=== PATIENT | female | born 1995 | race Caucasian/White ===

== ENCOUNTER → 2018-03-02 16:52 | Outpatient (CLI) | payer BC, SELFPAY ==
[2018-03-07 15:26] LABS: HPV Reflexed? NOT INDICATED
== END ==
PROVIDERS: Visit Provider Obstetrics & Gynecology
DX: Z12.4 Encounter for screening for malignant neoplasm of cervix (principal)
CPT/HCPCS: 88175; G0145

== ENCOUNTER → 2019-07-31 15:47 | Outpatient (CLI) | payer BC, SELFPAY ==
[2019-07-31 17:53] LABS: hCG Titer Quant., Serum 491 mIU/mL (1-3)
== END ==
PROVIDERS: Family Provider Family Medicine; PCP Family Medicine; Referring Provider Obstetrics & Gynecology; Visit Provider Obstetrics & Gynecology
DX: N92.6 Irregular menstruation, unspecified (principal)
CPT/HCPCS: 36415; 84702

== ENCOUNTER → 2019-08-02 07:02 | Outpatient (CLI) | payer BC, SELFPAY ==
[2019-08-02 07:57] LABS: hCG Titer Quant., Serum 988 mIU/mL (1-3)
== END ==
PROVIDERS: Family Provider Family Medicine; PCP Family Medicine; Referring Provider Obstetrics & Gynecology; Visit Provider Obstetrics & Gynecology
DX: O20.0 Threatened abortion (principal); Z3A.00 Weeks of gestation of pregnancy not specified
CPT/HCPCS: 36415; 84702

== ENCOUNTER → 2019-08-17 08:49 | Outpatient (CLI) | payer BC, SELFPAY ==
--- NOTE | 2019-08-17 08:49 | US_ITS ---
STUDY: FIRST TRIMESTER OBSTETRICAL ULTRASOUND REASON FOR EXAM: Female, 24 years old DATING LMP: April 06, 2020. TECHNIQUE: Transvaginal TECHNICAL QUALITY: Adequate. PRIOR ULTRASOUND: None. FINDINGS: There is visualization of a single gestational sac in a normal intrauterine position. The mean sac diameter (MSD) measures 2.3 cm, indicating an estimated gestational age (EGA) of 7 weeks, 2 days. The gestational sac shape is within normal limits. There is a visualized yolk sac. The yolk sac measures 3 mm. The placenta is non-visualized. There is visualization of a live embryo. The crown-rump length (CRL) measures 9 mm, indicating an estimated gestational age (EGA) of 6 weeks, 6 days. There is demonstrated cardiac activity with a heart rate of 135 bpm. The estimated gestation age (EGA) by LMP is 6 weeks, 5 days. The estimated date of delivery (BECCA) by LMP is April 06, 2020. The estimated gestation age (EGA) by US is 7 weeks, 0 days. The estimated date of delivery (BECCA) by US is April 04, 2020. The uterus measures 8.8 cm x 6.1 cm x 6.5 cm. The uterus is retroverted. There is no demonstrated uterine fibroid. The cervix is closed. The right ovary measures 3.2 cm x 1.8 x 2 x 1.7 cm. There is no right ovarian cyst. There is no visualized right adnexal mass or complex lesion. The left ovary measures 3.8 cm x 3.8 cm x 2.1 cm.. Within it, there is a 1.9 cm x 1.6 cm and 1.3 cm dominant follicle. There is no visualized left adnexal mass or complex lesion. Small amount of free fluid is seen surrounding the left adnexal region. US/Transvaginal w/Preg US IMPRESSION: Single live intrauterine gestation with a mean gestational age of 7 weeks. Dominant follicle in the left ovary. Small amount of free fluid surrounding the left adnexa. Electronically Signed: Rodolfo Murrell, at 14:36 EST , Service support ,
== END ==
PROVIDERS: Family Provider Family Medicine; PCP Family Medicine; Referring Provider Obstetrics & Gynecology; Visit Provider Obstetrics & Gynecology
DX: Z34.90 Encounter for supervision of normal pregnancy, unspecified, unspecified trimester (principal)
CPT/HCPCS: 76817

== ENCOUNTER → 2019-08-31 16:46 | Outpatient (CLI) | payer BC, SELFPAY ==
[2019-08-31 09:06] VITALS: BMI 29.0
[2019-08-31 18:40] LABS: Amphetamine Urine VISTA NEGATIVE (<1000 ng/mL); Barbiturate Urine VISTA NEGATIVE (< 200 ng/mL); Benzodiazepine Urine VISTA NEGATIVE (< 200 ng/mL); Cocaine Urine VISTA NEGATIVE (< 300 ng/mL); Ecstacy Urine VISTA NEGATIVE (< 500 ng/mL); Methadone Urine VISTA NEGATIVE (< 300 ng/mL); PCP Urine VISTA NEGATIVE (< 25 ng/mL); THC Urine VISTA NEGATIVE (< 50 ng/mL); Vista UDS pH Range 6
[2019-08-31 21:51] LABS: Chlamydia Trachomatis by PCR Negative (Negative); Neisserai gonorrhoeae by PCR Negative (Negative); Probe Check PASS; Sample Adequacy Control PASS; Specimen Processing Control PASS
== END ==
PROVIDERS: PCP Family Medicine; Referring Provider Obstetrics & Gynecology; Visit Provider Obstetrics & Gynecology
DX: Z34.90 Encounter for supervision of normal pregnancy, unspecified, unspecified trimester (principal)
CPT/HCPCS: 80307; 87086; 87491; 87591

== ENCOUNTER → 2019-09-13 08:17 | Outpatient (CLI) | payer BC, SELFPAY ==
[2019-08-31 09:06] VITALS: BMI 29.0
[2019-09-13 09:17] LABS: Absolute Neutrophil Count 5.4 X10^3/uL (2.0-7.7); Basophil# 0.03 X10^3/uL; Basophil% 0.4 % (0-1); Eosinophil# 0.06 X10^3/uL; Eosinophils% 0.8 % (0-5); Hemoglobin 13.5 g/dL (12.0-15.0); Mean Corp Hgb Conc 34.6 g/dL (32-36); Mean Corpuscular Hgb 30.7 pg (27.0-32.0); Mean Corpuscular Volume 88.6 fL (81-99); Mean Platelet Vol. 9.6 fl (6.2-12.0); Monocyte# 0.39 X10^3/uL; Monocyte% 5.4 % (0-10); NRBC Flagged by Analyzer 0 % (0-5); Neutrophil # 5.44 X10^3/uL (2.7-7.7); Neutrophil % 75.1 % (47-70); Platelet Count 281 K/mm3 (150-450); RBC Distribution Width CV 11.8 % (11.6-14.6); RBC Distribution Width SD 38.2 fl (35.1-43.9); White Blood Count 7.2 K/mm3 (4.4-11.0)
[2019-09-13 09:26] LABS: NATERA MAILED SPECIMEN
[2019-09-13 11:27] LABS: HIV - WCH Non-Reactive (Nonreactive); Hepatitis B Surface Antigen Non-Reactive (Nonreactive); Hepatitis C Antibody Non-Reactive (Nonreactive); Rubella IgG > 500.0 IU/mL
[2019-09-14 03:26] LABS: Rapid Plasmin Reagin (RPR) NONREACTIVE (NONREACTIVE)
== END ==
PROVIDERS: PCP Family Medicine; Referring Provider Obstetrics & Gynecology; Visit Provider Obstetrics & Gynecology
DX: Z34.81 Encounter for supervision of other normal pregnancy, first trimester (principal); Z31.430 Encounter of female for testing for genetic disease carrier status for procreative management
CPT/HCPCS: 36415; 85025; 86592; 86703; 86762; 86803; 86850; 86900; 86901; 87340

== ENCOUNTER → 2020-01-04 08:08 | Outpatient (CLI) | payer BC, SELFPAY ==
[2019-12-07 08:35] VITALS: BMI 29.0
[2020-01-04 08:27] LABS: Absolute Lymphocyte Count 1.29 X10^3/uL (0.83-4.51); Absolute Neutrophil Count 6.8 X10^3/uL (2.0-7.7); Basophil# 0.02 X10^3/uL; Basophil% 0.2 % (0-1); Eosinophil# 0.06 X10^3/uL; Eosinophils% 0.7 % (0-5); Hematocrit 34.7 % (37-47); Hemoglobin 12.1 g/dL (12.0-15.0); Lymphocyte # 1.29 X10^3/ul (4.0); Lymphocyte % 14.7 % (19-41); Mean Corp Hgb Conc 34.9 g/dL (32-36); Mean Corpuscular Hgb 31.8 pg (27.0-32.0); Mean Corpuscular Volume 91.1 fL (81-99); Mean Platelet Vol. 9.2 fl (6.2-12.0); Monocyte# 0.59 X10^3/uL; Monocyte% 6.7 % (0-10); NRBC Flagged by Analyzer 0 % (0-5); Neutrophil # 6.79 X10^3/uL (2.7-7.7); Neutrophil % 77.1 % (47-70); Platelet Count 246 K/mm3 (150-450); RBC Distribution Width CV 13.2 % (11.6-14.6); RBC Distribution Width SD 42.8 fl (35.1-43.9); Red Blood Count 3.81 M/mm3 (4.2-5.4); White Blood Count 8.8 K/mm3 (4.4-11.0)
[2020-01-04 09:02] LABS: Glucose Challenge Gest 1H 50g 146 mg/dL (70-140)
== END ==
PROVIDERS: PCP Family Medicine; Referring Provider Obstetrics & Gynecology; Visit Provider Obstetrics & Gynecology
DX: Z34.90 Encounter for supervision of normal pregnancy, unspecified, unspecified trimester (principal)
CPT/HCPCS: 36415; 82950; 85025

== ENCOUNTER → 2020-01-17 | Outpatient (CLI) | payer BC, SELFPAY ==
[2020-01-04 08:41] VITALS: BMI 29.0
[2020-01-17 07:22] LABS: Glucose GTT-Gestation. Fasting 84 mg/dL (<105)
[2020-01-17 08:30] LABS: Glucose GTT-Gestational 1 Hr 164 mg/dL (<190)
[2020-01-17 09:46] LABS: Glucose GTT-Gestational 2 Hr 130 mg/dL (<165)
[2020-01-17 11:19] LABS: Glucose GTT-Gestational 3 Hr 129 L (<145)
== END | disposition home or self-care (01) ==
LOC: LAB 06:55
PROVIDERS: PCP Family Medicine; Referring Provider Obstetrics & Gynecology; Visit Provider Obstetrics & Gynecology
DX: O99.810 Abnormal glucose complicating pregnancy (principal); Z3A.00 Weeks of gestation of pregnancy not specified
CPT/HCPCS: 36415; 82951; 82952

== ENCOUNTER → 2020-03-15 15:03 | Outpatient (CLI) | payer BC, SELFPAY ==
[2020-03-15 08:38] VITALS: BMI 29.0
== END ==
PROVIDERS: PCP Family Medicine; Referring Provider Obstetrics & Gynecology; Visit Provider Obstetrics & Gynecology
DX: Z34.90 Encounter for supervision of normal pregnancy, unspecified, unspecified trimester (principal)
CPT/HCPCS: 87081

== ENCOUNTER 2020-04-07 03:17 | Outpatient (CLI) | payer BC, SELFPAY ==
[2020-04-05 09:02] VITALS: BMI 29.0
[2020-04-07 03:22] VITALS: BMI 32.8
[2020-04-07 03:32] VITALS: BP 130/81; PULSE 102
[2020-04-07 03:33] VITALS: TEMP 37.9; O2SAT 97
[2020-04-07 03:38] VITALS: TEMP 36.9
[2020-04-07 04:43] VITALS: BP 127/71; TEMP 37.3
[2020-04-07 04:44] VITALS: PULSE 87; O2SAT 100
--- NOTE | 2020-04-07 09:09 | OB.TRI.PN ---
Progress Notes Date of Service: 04/07/20 Progress Note: Patient presents for triage evaluation secondary to false labor FHT: 130 Moderate variability reactive no decelerations category I tracing [place]: q 5-10Contractions Assessment and plan: false labor Reactive NST, reassuring maternal and status patient discharged to home to follow-up as scheduled. See problem list details for additional plan information. Multi Select Codes - Urinary/Genital Urinary/Genital CPT Codes: 07997-61 non-stress test Interp
== END 2020-04-07 05:45 | disposition home or self-care (01) ==
LOC: WPOUT 03:19 → WP 03:19
PROVIDERS: PCP Family Medicine; Referring Provider Obstetrics & Gynecology; Visit Provider Obstetrics & Gynecology
DX: O47.9 False labor, unspecified (principal); Z3A.00 Weeks of gestation of pregnancy not specified
CPT/HCPCS: 59025; 59050; 99218; G0378

== ENCOUNTER 2020-04-08 03:35 | Inpatient (IN) | payer BC, SELFPAY ==
[2020-04-07 03:22] VITALS: BMI 32.8
[2020-04-08] VITALS (57 sets, daily range): BP systolic 86–143; BP diastolic 45–81; PULSE 87–127; RESP 16–18; TEMP 36.1–37.4; O2SAT 97–100; BMI 32.5
[2020-04-08 03:26] LABS: ROM Internal Control Test YES-OK TO RESULT pt. (Internal QC); ROM Patient Test Negative (Negative)
[2020-04-08] MEDS: Lactated Ringers 1,000 ML 50 ML IV (04:25)
[2020-04-08 05:04] LABS: Absolute Lymphocyte Count 1.61 X10^3/uL (0.83-4.51); Absolute Neutrophil Count 7.3 X10^3/uL (2.0-7.7); Basophil# 0.03 X10^3/uL; Basophil% 0.3 % (0-1); Eosinophil# 0.05 X10^3/uL; Eosinophils% 0.5 % (0-5); Hematocrit 35.5 % (37-47); Hemoglobin 12.5 g/dL (12.0-15.0); Lymphocyte # 1.61 X10^3/ul (4.0); Lymphocyte % 16.3 % (19-41); Mean Corp Hgb Conc 35.2 g/dL (32-36); Mean Corpuscular Hgb 32.1 pg (27.0-32.0); Mean Corpuscular Volume 91.3 fL (81-99); Mean Platelet Vol. 9.1 fl (6.2-12.0); Monocyte# 0.79 X10^3/uL; NRBC Flagged by Analyzer 0 % (0-5); Neutrophil # 7.34 X10^3/uL (2.7-7.7); Neutrophil % 74.5 % (47-70); Platelet Count 221 K/mm3 (150-450); RBC Distribution Width CV 13.3 % (11.6-14.6); RBC Distribution Width SD 44.2 fl (35.1-43.9); Red Blood Count 3.89 M/mm3 (4.2-5.4); White Blood Count 9.9 K/mm3 (4.4-11.0)
--- NOTE | 2020-04-08 05:37 | HP.PCM_ITS ---
- Problem List (1) Active labor at term Status: Acute (2) Abnormal glucose affecting Status: Acute Comment: normal 3hr. GTT (3) Influenza vaccine administered Status: Acute Comment: 03/28/2020 (4) Status: Acute Qualifiers: Comment: NIPT-low risk, carrier screening negative;ntd screening declined. normal anatomy. declines covid testing. 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 Patient has had an uncomplicated with routine care OB Visit BECCA Calculator Estimated Delivery Date Method Current WG Current Estimate 04/05/20 LMP (Certain) 40w 0d Expected Delivery Route/Plan Labor Preferences-declined CB and BF classes labor support person: Joseph pain management options preferred: epidural cut cord/dad catch: yes : no PP control planned: pill discussed possible routes of delivery and associated risks: discussed possible delivery modalities and possible indications for each including R/B/A of , VAVD, and CS. questions answered. special requests: none Specific Issue/Plans flu vaccine: declines tdap vaccine: given rhogam: na LARC form signed: declined movement and labor precautions reviewed. Problem list reviewed and updated with the most current plan of care details and appropriate orders placed. Relevant counseling for the gestational age provided. Continue routine care and follow up unless otherwise noted in visit notes/problem list details Initial Weight: 169 lb Date EGA Weight BP Urine Prot Glucose FHR FuHt Pres Dilation Effaced St Visit Note 10/02/19 13w 3d 170 lb (+16 oz) 126/82 Negative Negative 155 SM- no vb cramping 12/07/19 22w 6d 179 lb 2 oz (+10 lb 2 oz) 130/68 Negative Negative 150 SM- no vb lof good fm no regular ctx 01/04/20 26w 6d 184 lb (+15 lb) 110/84 Negative Negative 150 Sm- no vb lof good fm no regular ctx. cbc gct 02/02/20 31w 0d 184 lb (+15 lb) 118/70 Negative Negative 160 31 SM- no vb lof good fm no regular ctx discussed delivery preferences 02/16/20 33w 0d 186 lb (+17 lb) 108/70 Negative Negative 150 33 SM- no vb lof good fm no regular ctx SM- no vb lof good fm no regular ctx. discuss covid precautions and testing at 03/01/20 35w 0d 188 lb (+19 lb) 118/64 Trace Negative 150 35 Cephalic Sm- no vb lof good fm no reuglar ctx 03/15/20 37w 0d 189 lb (+20 lb) 118/78 Negative Negative 150 37 Cephalic 1 SM- no vb lof good fm no regular ctx 03/22/20 38w 0d 189 lb (+20 lb) 126/70 Negative Negative 140 38 Cephalic 1 50 -2 GP - feeling more pressur e. Irregular ctx. Denies LOF, VB, DFM. 03/28/20 38w 6d 190 lb (+21 lb) 120/80 140 38 Cephalic 1.5 50 -2 SM- no vb lof good fm no regular ctx. discussed and declined covid testing. 04/05/20 40w 0d 190 lb (+21 lb) 102/60 Negative Negative 140 39 Cephalic 1.5 50 -1 SM-no vb lof good fm no r egular ctx ACOG First Trimester First Trimester: Desire for , Alcohol, Tobacco Cessation, Illicit/Recreational Drug/Substance Use, Intimate Partner Violence, Barriers to care, Unstable Housing, Communication Barriers, Environmental/Work Hazards, Anticipated Course of Care, Toxoplasmosis Precations, Use of Any medications, Sexual activity, Exercise, Dental Care, Sauna/Hot tub use, Seat Belt use, Childbirth classes/Hospital facilities, , Travel, Indications for US and Screening for Aneuploidy Second Trimester Second Trimester: Signs and Symptoms of Labor, Selecting a care provider, Reproductive Life Planning, Care Planning, Tobacco Cessation, Depression/Anxiety and Intimate Partner Violence Third Trimester Third Trimester: Pain Management Plans, Labor support person(s), Immediate Larc, Movement Monitoring and Feeding Yes ; discussed Trial of Labor after Counseling or discussed Circumcision preference Diagnostics Diagnostics Diagnostics Gest Glucose Tolerance MG/DL 01/17/20 Glucose 1 Hr 50 gm 146 mg/dL (70-140) H 01/04/20 Hgb 12.1 g/dL (12.0-15.0) 01/04/20 Hct 34.7 % (37-47) L 01/04/20 Details: HIV: Urine Culture: Sequential Screen: NIPT Screen: ROS Const Reports system reviewed and no additional complaints, except as docu Card Reports system reviewed and no additional complaints, except as docu Resp Reports system reviewed and no additional complaints, except as docu GI Reports system reviewed and no additional complaints, except as docu, Reports nausea Reports system reviewed and no additional complaints, except as docu Musc Reports system reviewed and no additional complaints, except as docu Exam Const General: cooperative, healthy appearing, comfortable, anxious HENCO Head: normal to inspection Nose: external nose normal Face and sinus: normal facial exam Neck Neck: normal visual inspection, full ROM, no lymphadenopathy Thyroid: thyroid normal Chest Chest palpation & inspection: normal inspection of the chest Resp Effort & Inspection: normal respiratory effort GI Inspection: normal to inspection Palpation: soft, other (gravid uterus) Other: infant vertex and appropriate size for gestational age Other: Cervical Exam: Extrem General: pedal edema Results POC Urinalysis 2 Dip (Clinic) Office Urine Glucose Negative Last Edit by Sandra Bhatt on 04/05/20 09:01 Office Urine Protein Negative Last Edit by Sandra Bhatt on 04/05/20 09:01 Assessment & Plan Problems 1. Influenza vaccine administered Z23 2. Abnormal glucose affecting O99.810 3. 40 weeks gestation of Z3A.40 4. Supervision of normal Z34.90 Patient presents IAL, plan expectant management for , Pitocin/AROM if needed. Pain management: Plans epidural. GBS negative. Management of any complications: None I have reviewed the [facility] and made any clinically relevant updates. Orders Orders: POC Urinalysis 2 Dip (Clinic) Today Coding Level of Care Code OB Routine Diagnoses Influenza vaccine administered Z23 Abnormal glucose affecting O99.810 40 weeks gestation of Z3A.40 ??Weeks of gestation: 40 weeks Supervision of normal Z34.90
[2020-04-08] MEDS: Lactated Ringers 500 ML 999 ML IV (07:17)
[2020-04-08] MEDS: fentaNYL-bupivacaine (epidural) 100 ML BAG EPIDURAL (08:03)
[2020-04-08] MEDS: Lactated Ringers 1,000 ML 200 ML IV (11:13)
--- NOTE | 2020-04-08 12:30 | OP.PCM_ITS ---
Problem List (1) Active labor at term Status: Acute (2) Abnormal glucose affecting Status: Acute Comment: normal 3hr. GTT (3) Influenza vaccine administered Status: Acute Comment: 03/28/2020 (4) Status: Acute Qualifiers: Comment: NIPT-low risk, carrier screening negative;ntd screening declined. normal anatomy. declines covid testing. (5) Supervision of normal Status: Acute Comment: PRR BECCA 04/05/20 girl Magan Joseph Vaginal Delivery Maternal Presentation: Active Labor ial 40 weeks Amniotic Membrane Rupture Type: Artificial Amniotic Fluid Description: Clear Final BECCA: 04/05/20 Gestational age: 40 Weeks and 3 Days Date of Procedure: 04/08/20 Pre-Operative Diagnosis: ial Post-Operative Diagnosis: same Surgery/ Procedure Performed: Spontaneous Vaginal Delivery Type of Anesthesia: Epidural Description of Procedure: Patient began pushing and delivered the head in the YUSRA presentation. The head was delivered atraumatically. The anterior and posterior shoulders delivered without complication followed by the rest of the infant and the was placed on the maternal abdomen. Delayed cord clamping was employed for approximately 60 seconds. Cord was clamped and cut and gentle traction was applied to the cord and the placenta delivered spontaneously immediately following it was noted to be intact with three-vessel cord. The perineum and vagina were inspected and noted to have a second degree perineal laceration that was repaired in the usual fashion. EBL was 300 cc. Patient and tolerated delivery well. Presentation: YUSRA Placental Delivery Description: Spontaneous Placenta Disposition: [facility] Cord Vessel Description: 3 Vessels Cord Entanglement: None Estimated Blood Loss: 300 A gender: Female Episiotomy Description: None Laceration: Perineal Extension/lac, 2nd degree Medications given after delivery: IV Pitocin Complications: None Multi Select Codes - Urinary/Genital Urinary/Genital CPT Codes: 20717 Vaginal Delivery [facility]
[2020-04-08] MEDS: Oxytocin 30 units/NS 500 ml 30 UNITS/500 ML IV.SOLN 334 UNITS IV (12:53)
[2020-04-08] MEDS: Methylergonovine 0.2 MG/ML Ampul IM (14:07)
[2020-04-08] MEDS: Naproxen 250 MG Tablet 500 MG PO ×2 (15:08→23:43)
[2020-04-08] MEDS: Dibucaine 30 GM Tube 1 APPLIC TOPICAL (15:09)
[2020-04-08] MEDS: Acetaminophen 500 MG Tablet 1000 MG PO (16:51)
[2020-04-08] MEDS: Senna/Docusate Sodium 1 Tablet PO (16:51)
[2020-04-09] VITALS (8 sets, daily range): BP systolic 116–140; BP diastolic 65–78; PULSE 88–98; RESP 16; TEMP 35.8–36.5
[2020-04-09] MEDS: Acetaminophen 500 MG Tablet 1000 MG PO ×2 (01:20→10:57)
--- NOTE | 2020-04-09 07:55 | PCM.PN.OB ---
Patient Problems: Active and Suspected Problems (Last Reviewed 04/05/20 @ 09:00 by Sandra Bhatt) Active labor at term (Acute) Subjective: Patient doing well without complaints. Tolerating PO. Ambulating and voiding without difficulty. Bottle feeding well. Denies chest pain, shortness of breath, calf pain/swelling, fevers, chills, lightheadedness. - Physical Exam Vitals/I&O's: Vital Signs Temp Pulse Resp BP Pulse Ox 96.5 F L 95 16 124/72 H 97 04/09/20 04:43 04/09/20 04:43 04/09/20 04:43 04/09/20 04:43 04/08/20 16:24 Oxygen Delivery Method Room Air Weight: 189 lb 6.033 oz Body Mass Index (BMI) 32.5 Intake and Output for Last 24 Hours 04/07/20 04/08/20 04/09/20 23:59 23:59 23:59 Intake Total 2159.99 / 2159.99 Output Total 1200 / 1200 Balance 959.99 / 959.99 General: Alert, Oriented x3 Abdomen: Soft, Non Tender, - - FF below U Current Medications Acetaminophen (Tylenol) 1,000 mg PO Q8H PRN PRN PRN Reason: Pain Score 1-310 Last Admin: 04/09/20 01:20 Dose: 1,000 mg Documented by: Bisacodyl (Dulcolax) 10 mg RECTAL UD PRN PRN Reason: If no BM Dibucaine (Dibucaine) 1 applic TOPICAL TID PRN PRN; Protocol PRN Reason: Discomfort Last Admin: 04/08/20 15:09 Dose: 1 applicatio Documented by: Hydrocortisone (Hytone) 1 applic TOPICAL TID PRN PRN; Protocol PRN Reason: Discomfort Methylergonovine Maleate (Methergine) 0.2 mg IM X1 PRN PRN Reason: Excess bleeding/uterine atony Last Admin: 04/08/20 14:07 Dose: 0.2 mg Documented by: Naproxen (Naprosyn) 500 mg PO Q8H PRN PRN PRN Reason: Pain Score 1-3/10 Last Admin: 04/08/20 23:43 Dose: 500 mg Documented by: Ondansetron HCl (Zofran) 4 mg IV Q4H PRN PRN PRN Reason: Nausea Oxycodone HCl (Oxyir) 5 - 10 mg PO Q4H PRN PRN PRN Reason: Pain Score 4-10/10 Senna/Docusate Sodium (Senokot-S, Naty-Colace) 1 - 2 tablet PO DAILY PRN PRN PRN Reason: Constipation Last Admin: 04/08/20 16:51 Dose: 2 tablet Documented by: Simethicone (Mylicon) 80 mg PO PCHS PRN PRN Reason: Indigestion/Stomach pain Sodium Chloride () 5 - 15 ml IV UD PRN PRN Reason: SALINE FLUSH Medical Necessity - Tobacco Use Smoking Status: Never smoker Assessment/Plan All Active Problems (Last Reviewed 04/05/20 @ 09:00 by Sandra Bhatt) Active labor at term (Acute) Influenza vaccine administered (Acute) Abnormal glucose affecting (Acute) (Acute) Supervision of normal (Acute) s/p PPD # 1 1. routine post delivery care 2. bottle feeding- support given 3. rh positive 4. rubella immune 5. home today
--- NOTE | 2020-04-09 07:56 | DCINST_ITS ---
Additional Instructions: If you experience any of the following, contact your healthcare provider. * Bleeding that soaks a pad every hour for 2 hours * Fever 100.4 or higher * Unrelieved incision or abdominal pain * Swelling, redness, discharge or bleeding from your incision or episiotomy site * Your incision begins to separate * Problems urinating (including inability to urinate or burning while urinating). * Visual changes * Severe headache * Flu-like symptoms * Pain or redness in one of both of your breasts * Pain, warmth, tenderness or swelling in your legs, especially the calf area * Frequent nausea and vomiting * Symptoms of depression or anxiety If you experience any of the following, call 911 or go to the nearest Emergency Room. * Chest pain * Problems breathing * Seizure activity * Partial or complete paralysis of a body part, slurred speech, weakness or drooping of the face, or a sudden inability to walk or hold your balance Allergies/Adverse Reactions: Allergies No Known Allergies Allergy (Verified 04/08/20 04:17) Medications to take at Discharge vitamin#30 30 mg iron-10 mg iron-folic acid 1 mg-omg3 capsule 1 cap PO DAILY 08/31/19 Loratadine [Claritin] 5 mg PO DAILY 04/07/20 Primary Care Physician: Vandana Otero PA-C [Primary Care Provider] - Test Results: Test results from this visit will be discussed in further detail at your follow- up appointment, if applicable.
--- NOTE | 2020-04-09 07:56 | PCM.DCVAG ---
Additional Instructions: If you experience any of the following, contact your healthcare provider. Bleeding that soaks a pad every hour for 2 hours Fever 100.4 or higher Unrelieved incision or abdominal pain Swelling, redness, discharge or bleeding from your incision or episiotomy site Your incision begins to separate Problems urinating (including inability to urinate or burning while urinating). Visual changes Severe headache Flu-like symptoms Pain or redness in one of both of your breasts Pain, warmth, tenderness or swelling in your legs, especially the calf area Frequent nausea and vomiting Symptoms of depression or anxiety If you experience any of the following, call 911 or go to the nearest Emergency Room. Chest pain Problems breathing Seizure activity Partial or complete paralysis of a body part, slurred speech, weakness or drooping of the face, or a sudden inability to walk or hold your balance Allergies/Adverse Reactions: Allergies No Known Allergies Allergy (Verified 04/08/20 04:17) Medications to take at Discharge vitamin#30 30 mg iron-10 mg iron-folic acid 1 mg-omg3 capsule 1 cap PO DAILY 08/31/19 Loratadine [Claritin] 5 mg PO DAILY 04/07/20 Primary Care Physician: Vandana Otero PA-C [Primary Care Provider] - Test Results: Test results from this visit will be discussed in further detail at your follow-up appointment, if applicable.
[2020-04-09] MEDS: Naproxen 250 MG Tablet 500 MG PO (08:11)
[2020-04-09] MEDS: Senna/Docusate Sodium 1 Tablet PO (10:57)
== END 2020-04-09 15:25 | disposition home or self-care (01) | DRG 807 ==
LOC: WPOUT 03:39 → WP 03:39
PROVIDERS: Admitting Provider Obstetrics & Gynecology; PCP Family Medicine; Referring Provider Obstetrics & Gynecology; Visit Provider Obstetrics & Gynecology
DX: O70.1 Second degree perineal laceration during delivery (principal); Z37.0 Single live birth; Z3A.40 40 weeks gestation of pregnancy
CPT/HCPCS: 59025; 59050; 84112; 85025; 86850; 86900; 86901; 99218; J7120; G0378

== ENCOUNTER → 2021-06-30 16:20 | Outpatient (CLI) | payer OTHER, SELFPAY ==
[2021-07-03 19:48] LABS: HPV Reflexed? NOT INDICATED
== END ==
PROVIDERS: PCP Family Medicine; Referring Provider Nurse Practitioner Women's Health; Visit Provider Nurse Practitioner Women's Health
DX: Z12.4 Encounter for screening for malignant neoplasm of cervix (principal)
CPT/HCPCS: 88175; G0145

== ENCOUNTER → 2022-07-30 | Outpatient (CLI) | payer OTHER, SELFPAY ==
[2022-08-03 03:06] LABS: Chlamydia By Nucleic Acid AMP Negative (Negative)
[2022-08-03 12:43] LABS: Gonococcus By Nucleic Acid AMP Negative (Negative)
== END | disposition home or self-care (01) ==
PROVIDERS: Visit Provider Obstetrics & Gynecology
DX: Z34.90 Encounter for supervision of normal pregnancy, unspecified, unspecified trimester (principal)
CPT/HCPCS: 87086; 87491; 87591

== ENCOUNTER → 2022-08-31 | Outpatient (CLI) | payer OTHER, SELFPAY ==
[2022-08-31 12:34] LABS: Absolute Lymphocyte Count 0.77 X10^3/uL (0.83-4.51); Absolute Neutrophil Count 5.1 X10^3/uL (2.0-7.7); Basophil# 0.03 X10^3/uL; Basophil% 0.5 % (0-1); Eosinophil# 0.16 X10^3/uL; Eosinophils% 2.4 % (0-5); Hematocrit 37.1 % (37-47); Hemoglobin 13.3 g/dL (12.0-15.0); Lymphocyte # 0.77 X10^3/ul (0.83-4.51); Lymphocyte % 11.7 % (19-41); Mean Corp Hgb Conc 35.8 g/dL (32-36); Mean Corpuscular Hgb 30.6 pg (27.0-32.0); Mean Corpuscular Volume 85.3 fL (81-99); Mean Platelet Vol. 9.5 fl (6.2-12.0); Monocyte# 0.46 X10^3/uL; NRBC Flagged by Analyzer 0 % (0-5); Neutrophil # 5.14 X10^3/uL (2.7-7.7); Neutrophil % 78.1 % (47-70); Platelet Count 253 K/mm3 (150-450); RBC Distribution Width CV 12.1 % (11.6-14.6); RBC Distribution Width SD 37.3 fl (35.1-43.9); Red Blood Count 4.35 M/mm3 (4.2-5.4); White Blood Count 6.6 K/mm3 (4.4-11.0)
[2022-08-31 12:45] LABS: NATERA MAILED SPECIMEN
[2022-08-31 13:28] LABS: HIV - WCH Non-Reactive (Nonreactive); Hepatitis B Surface Antigen Non-Reactive (Nonreactive); Hepatitis C Antibody Non-Reactive (Nonreactive); Rubella IgG Reactive (Nonreactive); Syphilis Antibodies Non-reactive
== END | disposition home or self-care (01) ==
PROVIDERS: Visit Provider Obstetrics & Gynecology
DX: Z34.90 Encounter for supervision of normal pregnancy, unspecified, unspecified trimester (principal)
CPT/HCPCS: 36415; 85025; 86703; 86762; 86780; 86803; 86850; 86900; 86901; 87340

== ENCOUNTER → 2022-10-23 | Outpatient (CLI) | payer OTHER, SELFPAY | END | disposition home or self-care (01) | LOC: LABSPEC 10:39 | PROVIDERS: Referring Provider Obstetrics & Gynecology; Visit Provider Obstetrics & Gynecology | DX: O99.891 Other specified diseases and conditions complicating pregnancy (principal); R30.0 Dysuria; Z3A.00 Weeks of gestation of pregnancy not specified | CPT/HCPCS: 87086 ==

== ENCOUNTER → 2022-12-18 | Outpatient (CLI) | payer OTHER, SELFPAY ==
[2022-12-18 08:34] LABS: Absolute Lymphocyte Count 1.21 X10^3/uL (0.83-4.51); Absolute Neutrophil Count 6.9 X10^3/uL (2.0-7.7); Basophil# 0.03 X10^3/uL; Basophil% 0.3 % (0-1); Eosinophil# 0.15 X10^3/uL; Eosinophils% 1.7 % (0-5); Hematocrit 35.4 % (37-47); Hemoglobin 12.4 g/dL (12.0-15.0); Lymphocyte # 1.21 X10^3/ul (0.83-4.51); Lymphocyte % 13.7 % (19-41); Mean Corpuscular Hgb 31.6 pg (27.0-32.0); Mean Corpuscular Volume 90.1 fL (81-99); Mean Platelet Vol. 9.1 fl (6.2-12.0); Monocyte# 0.54 X10^3/uL; Monocyte% 6.1 % (0-10); NRBC Flagged by Analyzer 0 % (0-5); Neutrophil # 6.88 X10^3/uL (2.7-7.7); Platelet Count 241 K/mm3 (150-450); RBC Distribution Width CV 13.3 % (11.6-14.6); RBC Distribution Width SD 43.7 fl (35.1-43.9); Red Blood Count 3.93 M/mm3 (4.2-5.4); White Blood Count 8.8 K/mm3 (4.4-11.0)
[2022-12-18 09:02] LABS: Glucose Challenge Gest 1H 50g 137 mg/dL (70-140)
[2022-12-18 09:36] LABS: HIV - WCH Non-Reactive (Nonreactive); Syphilis Antibodies Non-reactive
== END | disposition home or self-care (01) ==
LOC: LAB 08:04
PROVIDERS: Referring Provider Obstetrics & Gynecology; Visit Provider Obstetrics & Gynecology
DX: O09.90 Supervision of high risk pregnancy, unspecified, unspecified trimester (principal); Z13.1 Encounter for screening for diabetes mellitus
CPT/HCPCS: 36415; 82950; 85025; 86703; 86780

== ENCOUNTER → 2023-01-07 | Outpatient (CLI) | payer OTHER, SELFPAY ==
[2023-01-07 08:40] LABS: Glucose GTT-Gestation. Fasting 84 mg/dL (<105)
[2023-01-07 09:09] LABS: Glucose GTT-Gestational 1 Hr 139 mg/dL (<190)
[2023-01-07 10:50] LABS: Glucose GTT-Gestational 2 Hr 98 mg/dL (<165)
[2023-01-07 11:54] LABS: Glucose GTT-Gestational 3 Hr 119 L (<145)
== END | disposition home or self-care (01) ==
LOC: LAB 06:55
PROVIDERS: Referring Provider Nurse Practitioner Women's Health; Visit Provider Nurse Practitioner Women's Health
DX: Z13.1 Encounter for screening for diabetes mellitus (principal)
CPT/HCPCS: 36415; 82951; 82952

== ENCOUNTER → 2023-02-11 | Outpatient (CLI) | payer OTHER, SELFPAY | END | disposition home or self-care (01) | LOC: LABSPEC 11:27 | PROVIDERS: Referring Provider Obstetrics & Gynecology; Visit Provider Obstetrics & Gynecology | DX: Z34.90 Encounter for supervision of normal pregnancy, unspecified, unspecified trimester (principal) | CPT/HCPCS: 87081 ==

== ENCOUNTER 2023-03-05 09:27 | Outpatient (CLI) | payer OTHER, SELFPAY ==
[2023-03-05] VITALS (9 sets, daily range): BP systolic 124–141; BP diastolic 70–86; PULSE 90–102; TEMP 36.4; O2SAT 96; BMI 33.5
[2023-03-05 10:16] LABS: Hemoglobin 12.6 g/dL (12.0-15.0); Mean Corpuscular Hgb 31.5 pg (27.0-32.0); Mean Platelet Vol. 9.5 fl (6.2-12.0); Platelet Count 237 K/mm3 (150-450); RBC Distribution Width CV 13.4 % (11.6-14.6); White Blood Count 7.8 K/mm3 (4.4-11.0)
[2023-03-05 10:28] LABS: AST(SGOT) 11 U/L (15-37); Alanine Aminotransfer ALT/SGPT 13 U/L (13-56); EST Glomerular Filtration Rate 157 mL/min (>60); Est Glom Filt Rate - Afr Amer 189 mL/min (>60); Estimated Creatinine Clearance 149.39 ml/min; Uric Acid 5.4 mg/dL (2.6-6.0)
[2023-03-05 10:44] LABS: Protein, Urine (Random) 23.9 mg/dL (<11.9); Protein:Creat Ratio 156 mg/g CRE (0-200)
[2023-03-05] MEDS: Acetaminophen 500 MG Tablet PO (10:49)
--- NOTE | 2023-03-05 12:09 | NURSING ---
MSE indication for provider assessment prior to discharge, pt sent to unit for evaluation and r/o pre e from the office. blood pressures and labs reviewed with Dr. Ocampo, since pt seen in office prior to arrival on unit and symptoms remains the same and headache not worsened but okay for discharge without evaluation prior to leaving unit since pt was evaluated and assessed in office this AM.
--- NOTE | 2023-03-07 14:42 | OB.TRI.NOTE ---
HPI - General General Date of Admission: 03/05/23 HPI Narrative MARLINE CLEMENTE, is a 28 y/o @39 weeks 2 days who presents to L&D after being seen in the office earier today. She had 1+ protein in her urine on dip but no headaches, visual changes or elevation in BP. She was sent down for a full work up. Maternal Data Information BECCA Calculator Estimated Delivery Date Method Current WG Current Estimate 03/10/23 LMP (Certain) 39w 4d PFSH PFSH Home Medications fluticasone propionate 50 mcg/actuation nasal spray,suspension 1 spray intranasal DAILY 07/07/22 [History Last Taken Unknown] loratadine 10 mg tablet (Claritin) 10 mg PO DAILY 07/07/22 [History Last Taken Unknown] multivitamin no.47-iron fum 27 mg-folate no.1 1 mg-dha 300 mg capsule (PNV-DHA) cap PO 07/07/22 [History Last Taken Unknown] promethazine 12.5 mg tablet 12.5 mg PO Q6H PRN nausea and vomiting #60 tabs 09/01/22 [Rx Last Taken Unknown] Allergy/AdvReac Type Severity Reaction Status Date / Time No Known Allergies Allergy Verified 03/05/23 11:36 Family History Sister Hypertension Heart murmur Grandfather Skin cancer Heart disease Aunt Heart disease Surgical History History of wisdom tooth extraction, class II edentulism Social History adopted: No household members: spouse and children housing: house number of children: 1 current occupational status: employed 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 current occupational exposures/hazards: No pets and animals: Yes pets and animals: dog(s) history of recent travel: Yes (March) sexually active: Yes Smoking Status: Never smoker alcohol intake: former details: social occasion prior to substance use type: does not use well-balanced diet: daily or most days caffeine: Yes Type: coffee Number of servings: 2 eating out: rarely or never during the past year weight has: remained stable what type of physical activity do you participate in: none and walking toi/methodist: None seatbelt use: always do you feel safe at home: Yes 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 Date Name GA/Weeks Outcome Route Bth Weight Gen Labor Lgth Anesthesia Del Locatn Provider FOB 04/08/20 Magan 40 live - full term Female [facility] Mites[facility] Delivery Date: 04/08/20 Last Updated by: Peggy Viera IOL 40w3d Visit Details Expected Delivery Route/Plan Labor Preferences- CB/BF classes: [] labor support person: [] labor intervention preferences: [] pain management options preferred: [] cut cord/dad catch: [] : [] PP control planned: [] discussed possible routes of delivery and associated risks: [] special requests: [] Plans Covid status: discussed Flu vaccine: discussed Tdap vaccine: given Rhogam: na LARC form signed: declined movement and labor precautions reviewed. Problem list reviewed and updated with the most current plan of care details and appropriate orders placed. Relevant counseling for the gestational age provided. Continue routine care and follow up unless otherwise noted in visit notes/problem list details OB Flowsheet Initial Weight: Not Recorded Date <del>?</del> EGA Weight BP Urine Prot <del>?</del> Glucose FHR FuHt Pres Dilation <del>?</del> Effaced St Visit Note 07/30/22 <del>?</del> 8w 1d 184 lb 4 oz 138/83 <del>?</del> 170 <del>?</del> SM- CRl cons 1.6 cm 08/28/22 <del>?</del> 12w 2d 185 lb 6 oz 119/80 <del>?</del> 165 <del>?</del> JV- CRL measuring 12 weeks. desires NIPT. 09/24/22 <del>?</del> 16w 1d 185 lb 6 oz 130/85 Negative <del>?</del> Negative 155 <del>?</del> JV- pt stil on abx from uti. will rpt culture next visit. may need to postpone anatomy scan if no insurance. no other complaints today 10/23/22 <del>?</del> 20w 2d 189 lb 6 oz 101/75 <del>?</del> 145 <del>?</del> SM- no vb lof good fm n oregular ctx 11/20/22 <del>?</del> 24w 2d 194 lb 2 oz 133/80 Negative <del>?</del> Negative 140 25 <del>?</del> JV- gct ordered. no complaints. normal anatomy scan 12/18/22 <del>?</del> 28w 2d 196 lb 113/76 <del>?</del> 145 29 <del>?</del> JV- GCT pending, cbc is normal. going to [place] this weekend. No complaints. 01/01/23 <del>?</del> 30w 2d 196 lb 8 oz 116/74 Trace <del>?</del> Negative 144 30 <del>?</del> JV- no lof, vaginal bleeding, or dec fm. no complaints. has 3 hr scheduled. 01/15/23 <del>?</del> 32w 2d 200 lb 123/80 Negative <del>?</del> Negative 145 33 <del>?</del> Sm- no vb lof good fm no regular ctx 01/29/23 <del>?</del> 34w 2d 201 lb 119/73 Negative <del>?</del> Negative 152 34 <del>?</del> JV- larc signed. no lof, vaginal bleeding, or dec fm. 02/11/23 <del>?</del> 36w 1d 203 lb 2 oz 112/75 <del>?</del> 150 36 Cephalic 0 <del>?</del> JV-no lof, vaginal bleeding, or dec fm. gbs collected, labor precautions discussed. bringing her daughter Magan to visit next week and may not want checked. 02/18/23 <del>?</del> 37w 1d 202 lb 4 oz 113/76 Negative <del>?</del> Negative 143 37 <del>?</del> JV- no complaints today. declines pelvic exam. 02/26/23 <del>?</del> 38w 2d 202 lb 4 oz 118/86 Negative <del>?</del> Negative 155 38 Cephalic 0.5 <del>?</del> SM- no vb lof good fm no regular ctx 03/05/23 <del>?</del> 39w 2d 203 lb 4 oz 129/78 Trace <del>?</del> Negative 145 39 Cephalic 1.5 <del>?</del> 40 -2 SM- co REED throughout the week no clonus or hyperreflexia didn't relieve with tylenol no visual changes will go to l and d for evaluation NST FHR Rate Baby A Baseline: 140 Variability:: Moderate Accelerations:: 15 x 15 Decelerations:: None NST Reactive:: Yes FHR Category:: Category I Assessment & Plan (1) Abnormal glucose level: COMMENT: 3 HR GTT-Nml (2) Supervision of high risk , antepartum: COMMENT: PRR , BECCA 03/10/23, girl VANESSA Carrero, Joseph GBS is negative (3) : QUALIFIERS: Weeks of gestation: 39 weeks Qualified Code(s): Z3A.39 - 39 weeks gestation of COMMENT: nl NIPT declined carrier and ntd screen, nl anatomy PLAN: Plan negative pre-e work up. ok for dc to home. Charges/Coding Multi Select Codes Urinary/Genital Urinary/Genital CPT Codes: 55345-44 non-stress test Interp
== END 2023-03-05 12:10 | disposition home or self-care (01) ==
LOC: WPOUT 09:32 → WP 10:46
PROVIDERS: Obstetrics & Gynecology; Referring Provider Obstetrics & Gynecology; Visit Provider Obstetrics & Gynecology
DX: O99.810 Abnormal glucose complicating pregnancy (principal); Z3A.39 39 weeks gestation of pregnancy
CPT/HCPCS: 36415; 59025; 59050; 82565; 82570; 84156; 84450; 84460; 84550; 85027

== ENCOUNTER 2023-03-08 05:35 | Inpatient (IN) | payer OTHER, SELFPAY ==
[2023-03-08] VITALS (32 sets, daily range): BP systolic 105–143; BP diastolic 55–87; PULSE 80–121; RESP 15–16; TEMP 36.1–37.1; O2SAT 97–99; BMI 33.4
[2023-03-08 05:29] LABS: ROM Internal Control Test YES-OK TO RESULT pt. (Internal QC)
[2023-03-08 05:30] LABS: ROM Patient Test POSITIVE (Negative); Record Kit Lot#, ROM+ K1374
[2023-03-08] MEDS: LACTATED RINGERS 500 ML 999 ML IV (05:55)
[2023-03-08 06:00] LABS: Absolute Lymphocyte Count 1.49 X10^3/uL (0.83-4.51); Absolute Neutrophil Count 9.9 X10^3/uL (2.0-7.7); Basophil# 0.04 X10^3/uL; Basophil% 0.3 % (0-1); Eosinophil# 0.06 X10^3/uL; Eosinophils% 0.5 % (0-5); Hematocrit 38.1 % (37-47); Lymphocyte # 1.49 X10^3/ul (0.83-4.51); Mean Corp Hgb Conc 34.1 g/dL (32-36); Mean Corpuscular Hgb 31.4 pg (27.0-32.0); Mean Platelet Vol. 9.9 fl (6.2-12.0); Monocyte# 0.86 X10^3/uL; Monocyte% 6.9 % (0-10); NRBC Flagged by Analyzer 0 % (0-5); Neutrophil # 9.88 X10^3/uL (2.7-7.7); Neutrophil % 79.8 % (47-70); Platelet Count 259 K/mm3 (150-450); RBC Distribution Width CV 13.2 % (11.6-14.6); RBC Distribution Width SD 44.5 fl (35.1-43.9); Red Blood Count 4.14 M/mm3 (4.2-5.4); White Blood Count 12.4 K/mm3 (4.4-11.0)
[2023-03-08] MEDS: Lactated Ringers 1,000 ML 50 ML IV (06:30)
[2023-03-08 06:38] LABS: AST(SGOT) 12 U/L (15-37); Alanine Aminotransfer ALT/SGPT 14 U/L (13-56); Creatinine, Serum 0.53 mg/dL (0.55-1.02); EST Glomerular Filtration Rate 145 mL/min (>60); Est Glom Filt Rate - Afr Amer 175 mL/min (>60); Estimated Creatinine Clearance 140.93 ml/min; Uric Acid 5.4 mg/dL (2.6-6.0)
[2023-03-08 07:32] LABS: Protein, Urine (Random) 8.1 mg/dL (<11.9); Protein:Creat Ratio 137 mg/g CRE (0-200)
[2023-03-08] MEDS: fentaNYL-bupivacaine (epidural) 100 ML BAG EPIDURAL (07:49)
[2023-03-08] MEDS: Oxytocin 15 Units/NS 250ml 15 UNITS/250 ML IV.SOLN 2 UNITS IV (08:22)
--- NOTE | 2023-03-08 08:48 | HP.PCM.OB_ITS ---
HPI - General General Date of Admission: 03/08/23 HPI Narrative MARLINE CLEMENTE, is a 28 F who presents IAL with meconium and ROM irregular ctx no vb Maternal Data Information BECCA Calculator Estimated Delivery Date Method Current WG Current Estimate 03/10/23 LMP (Certain) 39w 5d PFSH PFSH Home Medications fluticasone propionate 50 mcg/actuation nasal spray,suspension 1 spray intranasal DAILY 07/07/22 [History Last Taken 03/07/23] loratadine 10 mg tablet (Claritin) 10 mg PO DAILY 07/07/22 [History Last Taken 03/07/23] multivitamin no.47-iron fum 27 mg-folate no.1 1 mg-dha 300 mg capsule (PNV-DHA) 1 cap PO DAILY 07/07/22 [History Last Taken 03/07/23] promethazine 12.5 mg tablet 12.5 mg PO Q6H PRN nausea and vomiting #60 tabs 09/01/22 [Rx Last Taken Unknown] Allergy/AdvReac Type Severity Reaction Status Date / Time No Known Allergies Allergy Verified 03/08/23 04:56 Family History Sister Hypertension Heart murmur Grandfather Skin cancer Heart disease Aunt Heart disease Surgical History History of wisdom tooth extraction, class II edentulism Social History adopted: No household members: spouse and children housing: house number of children: 1 current occupational status: employed 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 current occupational exposures/hazards: No pets and animals: Yes pets and animals: dog(s) history of recent travel: Yes (March) sexually active: Yes Smoking Status: Never smoker alcohol intake: former details: social occasion prior to substance use type: does not use well-balanced diet: daily or most days caffeine: Yes Type: coffee Number of servings: 2 eating out: rarely or never during the past year weight has: remained stable what type of physical activity do you participate in: none and walking toi/evangelical: None seatbelt use: always do you feel safe at home: Yes additional social history: [employer] Patient works at [employer] History 2 Elective abortions Hx Para 1 Spontaneous abortions Hx # Term Pregnancies 1 Ectopic pregnancies Hx # Pregnancies Multiple births # of living children 1 Past Pregnancies Del. Date Name GA/Weeks Outcome Route Bth Weight Infant Gen Labor Lgth Anesthesia Del Locatn Provider FOB 04/08/20 Magan 40 live - full term Female [facility] Mitesh Delivery Date: 04/08/20 Last Updated by: Peggy Viera IOL 40w3d Visit Details Expected Delivery Route/Plan Labor Preferences- CB/BF classes: [] labor support person: [] labor intervention preferences: [] pain management options preferred: [] cut cord/dad catch: [] : [] PP control planned: [] discussed possible routes of delivery and associated risks: [] special requests: [] Plans Covid status: discussed Flu vaccine: discussed Tdap vaccine: given Rhogam: na LARC form signed: declined movement and labor precautions reviewed. Problem list reviewed and updated with the most current plan of care details and appropriate orders placed. Relevant counseling for the gestational age provided. Continue routine care and follow up unless otherwise noted in visit notes/problem list details OB Flowsheet Initial Weight: Not Recorded Date -?-?-?-?-?-?-?-?-?-?-?-?- EGA Weight BP Urine Prot -?-?-?-?-?-?-?-?-?-?-?-?- Glucose FHR FuHt Pres Dilation -?-?-?-?-?-?-?-?-?-?-?-?- Effaced St Visit Note 07/30/22 -?-?-?-?-?-?-?-?-?-?-?-?- 8w 1d 184 lb 4 oz 138/83 -?-?-?-?-?-?-?-?-?-?-?-?- 170 -?-?-?-?-?-?-?-?-?-?-?--?- SM- CRl cons 1.6 cm 08/28/22 -?-?-?-?-?-?-?-?-?-?-?-?- 12w 2d 185 lb 6 oz 119/80 -?-?-?-?-?-?-?-?-?-?-?-?- 165 -?-?-?-?-?-?-?-?-?-?-?-?- JV- CRL measurin g 12 weeks. desires NIPT. 09/24/22 -?-?-?-?-?-?-?-?-?-?-?-?- 16w 1d 185 lb 6 oz 130/85 Nega tive -?-?-?-?-?-?-?-?-?-?-?--?- Negative 155 -?-?-?-?-?-?-?-?-?-?-?-?- JV- pt stil on a bx from [place]. will rpt culture next visit. may need to postpone anatomy scan if no insurance. no other complaints today 10/23/22 -?-?-?-?-?-?-?-?-?-?-?-?- 20w 2d 189 lb 6 oz 101/75 -?-?-?-?-?-?-?-?-?-?-?-?- 145 -?-?-?-?-?-?-?-?-?-?-?-?- SM- no vb lof go od fm n oregular ctx 11/20/22 -?-?-?-?-?-?-?-?-?-?-?-?- 24w 2d 194 lb 2 oz 133/80 Nega tive -?-?-?-?-?-?-?-?-?-?-?-?- Negative 140 25 -?-?-?-?-?-?-?-?-?-?-?-?- JV- gct ordered. no complaints. normal anatomy scan 12/18/22 -?-?-?-?-?-?-?-?-?-?-?-?- 28w 2d 196 lb 113/76 -?-?-?-?-?-?-?-?-?-?-?-?- 145 29 -?-?-?-?-?-?-?-?-?-?-?-?- JV- GCT pending, cbc is normal. going to [employer] this weekend. No complaints. 01/01/23 -?-?-?-?-?-?-?-?-?-?-?-?- 30w 2d 196 lb 8 oz 116/74 Trac e -?-?-?-?-?-?-?-?-?-?-?-?- Negative 144 30 -?-?-?-?-?-?-?-?-?-?-?-?- JV- no lof, vagi nal bleeding, or dec fm. no complaints. has 3 hr scheduled. 01/15/23 -?-?-?-?-?-?-?-?-?-?-?-?- 32w 2d 200 lb 123/80 Negative -?-?-?-?-?-?-?-?-?-?-?-?- Negative 145 33 -?-?-?-?-?-?-?-?-?-?-?-?- Sm- no vb lof go od fm no regular ctx 01/29/23 -?-?-?-?-?-?-?-?-?-?-?-?- 34w 2d 201 lb 119/73 Negative -?-?-?-?-?-?-?-?-?-?-?-?- Negative 152 34 -?-?-?-?-?-?-?-?-?-?-?-?- JV- larc signed. no lof, vaginal bleeding, or dec fm. 02/11/23 -?-?-?-?-?-?-?-?-?-?-?-?- 36w 1d 203 lb 2 oz 112/75 -?-?-?-?-?-?-?-?-?-?-?-?- 150 36 Cephalic 0 -?-?-?-?-?-?-?-?-?-?-?-?- JV-no lof, vagin al bleeding, or dec fm. gbs collected, labor precautions discussed. bringing her daughter Magan to visit next week and may not want checked. 02/18/23 -?-?-?-?-?-?-?-?-?-?-?-?- 37w 1d 202 lb 4 oz 113/76 Nega tive -?-?-?-?-?-?-?-?-?-?-?-?- Negative 143 37 -?-?-?-?-?-?-?-?-?-?-?-?- JV- no complaint s today. declines pelvic exam. 02/26/23 -?-?-?-?-?-?-?-?-?-?-?-?- 38w 2d 202 lb 4 oz 118/86 Nega tive -?-?-?-?-?-?-?-?-?-?-?-?- Negative 155 38 Cephalic 0 .5 -?-?-?-?-?-?-?-?-?-?-?-?- SM- no vb lof go od fm no regular ctx 03/05/23 -?-?-?-?-?-?-?-?-?-?-?-?- 39w 2d 203 lb 4 oz 129/78 Trac e -?-?-?-?-?-?-?-?-?-?-?-?- Negative 145 39 Cephalic 1 .5 -?-?-?-?-?-?-?-?-?-?-?-?- 40 -2 SM- co REED throughout the week no clonus or hyperreflexia didn't relieve with tylenol no visual changes will go to l and d for evaluation NST FHR Rate Baby A Baseline: 140 Variability:: Moderate Accelerations:: 15 x 15 Decelerations:: None NST Reactive:: Yes FHR Category:: Category I Uterine Activity:: irregular ROS Constitutional Constitutional: Reports systems reviewed and no addt'l complaints, except as documented Eyes Eyes: Denies change in vision ENT HEENT: Reports systems reviewed and no addt'l complaints, except as documented; Denies headache(s) Cardiovascular Cardiovascular: Reports systems reviewed and no addt'l complaints, except as documented; Denies chest pain or dyspnea Respiratory/Chest Respiratory/Chest: Reports systems reviewed and no addt'l complaints, except as documented Gastrointestinal Gastrointestinal: Reports systems reviewed and no addt'l complaints, except as documented; Denies abdominal pain Genitourinary Genitourinary: Reports systems reviewed and no addt'l complaints, except as documented, contractions Details: present (irregular) and movement Details: present; Denies dysuria or genital lesions Musculoskeletal Musculoskeletal: Reports systems reviewed and no addt'l complaints, except as do cumented Neurologic Neurologic: Reports systems reviewed and no addt'l complaints, except as documented Endocrine Endocrinology: Reports systems reviewed and no addt'l complaints, except as documented Vital Signs Vital Signs Vital Signs: 03/08/23 04:32 03/08/23 04:32 03/08/23 04:32 Temperature Temperature Source Pulse Rate 109 H Blood Pressure 143/81 H BP Systolic 143 BP Diastolic 81 Pulse Ox 98 03/08/23 04:32 03/08/23 04:32 03/08/23 06:04 Temperature 98.8 F Temperature Source Temporal Pulse Rate Blood Pressure 114/74 BP Systolic 114 BP Diastolic 74 Pulse Ox 03/08/23 06:04 03/08/23 06:04 03/08/23 06:04 Temperature 97.6 F L Temperature Source Temporal Pulse Rate 107 H Blood Pressure BP Systolic BP Diastolic Pulse Ox 03/08/23 07:08 03/08/23 07:08 03/08/23 07:13 Temperature Temperature Source Pulse Rate 108 H Blood Pressure 133/82 H BP Systolic 133 BP Diastolic 82 Pulse Ox 98 03/08/23 07:13 03/08/23 07:13 03/08/23 07:20 Temperature Temperature Source Pulse Rate 109 H Blood Pressure 109/58 L BP Systolic 109 BP Diastolic 58 Pulse Ox 98 03/08/23 07:20 03/08/23 07:24 03/08/23 07:24 Temperature Temperature Source Pulse Rate 93 96 Blood Pressure 121/60 H BP Systolic 121 BP Diastolic 60 Pulse Ox 03/08/23 07:28 03/08/23 07:28 03/08/23 07:33 Temperature Temperature Source Pulse Rate 102 H Blood Pressure 110/55 L 107/56 L BP Systolic 110 107 BP Diastolic 55 56 Pulse Ox 03/08/23 07:33 03/08/23 07:00 03/08/23 07:00 Temperature 97.7 F L Temperature Source Temporal Pulse Rate 99 Blood Pressure BP Systolic BP Diastolic Pulse Ox 03/08/23 08:04 03/08/23 08:04 03/08/23 08:29 Temperature Temperature Source Pulse Rate 91 Blood Pressure 114/60 112/55 L BP Systolic 114 112 BP Diastolic 60 55 Pulse Ox 03/08/23 08:29 Temperature Temperature Source Pulse Rate 96 Blood Pressure BP Systolic BP Diastolic Pulse Ox Weight Weight: 201 lb Body Mass Index (BMI) 33.4 Physical Exam Const alert, oriented x3, no apparent distress and healthy appearing HEENT normocephalic and moist oral mucous membranes Head and Scalp: atraumatic Neck full ROM, no lymphadenopathy, supple and thyroid normal General: trachea midline Lymph Lymphatic: no lymphadenopathy noted Chest inspection of chest normal Resp normal respiratory effort Cardio regular rate GI normal to inspection, nondistended, normoactive bowel sounds, soft to palpation and non-tender Inspection: gravid external exam normal Manual OB Exam: estimated gestational size appropriate, presentation cephalic, dilated, effaced and station Extremity normal to inspection General Extremity: Negative for edema Skin no rashes or lesions noted Neuro no focal motor deficits and deep tendon reflexes 2+ bilaterally Motor Exam: strength 5/5 throughout and clonus absent Psych mental status grossly normal Labs Labs Labs: Blood Type A POSITIVE Antibody Screen NEGATIVE Hct 38.1 % (37-47) Hgb 13.0 g/dL (12.0-15.0) Obstetrics US Syphilis Total Ab Non-reactive Rubella IgG Antibody Reactive (Nonreactive) Hep Bs Antigen Non-Reactive (Nonreactive) Chlamydia DNA (ROMANA) Negative (Negative) Neisseria gonorrhoeae DNA (ROMANA) Negative (Negative) HIV 1&2 Antibody Non-Reactive (Nonreactive) Glucose 1 Hr 50 gm 137 mg/dL (70-140) Rhogam given: No Assessment & Plan (1) : QUALIFIERS: Weeks of gestation: 39 weeks Qualified Code(s): Z3A.39 - 39 weeks gestation of COMMENT: nl NIPT declined carrier and ntd screen, nl anatomy (2) Supervision of high risk , antepartum: COMMENT: PRR , BECCA 03/10/23, girl VANESSA Carrero, Joseph GBS is negative (3) Abnormal glucose level: COMMENT: 3 HR GTT-Nml (4) SROM (spontaneous rupture of membranes): PLAN: Plan Patient presents exp management pit PRN. Pain management: plans epidural. GBS neg. Management of any complications: none I have reviewed the [facility] and made any clinically relevant updates.
[2023-03-08 08:56] LABS: Syphilis Antibodies Non-reactive
[2023-03-08] MEDS: Acetaminophen 500 MG Tablet PO (09:38)
[2023-03-08] MEDS: Sodium Citrate/Citric Acid 30 ML UDC PO (09:39)
[2023-03-08] MEDS: Cefazolin 2 GM in 0.9% Normal Saline 100 ML IV (09:56)
--- NOTE | 2023-03-08 10:26 | OP.PCM_ITS ---
Assessment & Plan (1) : QUALIFIERS: Weeks of gestation: 39 weeks Qualified Code(s): Z3A.39 - 39 weeks gestation of COMMENT: nl NIPT declined carrier and ntd screen, nl anatomy (2) Supervision of high risk , antepartum: COMMENT: PRR , BECCA 03/10/23, girl VANESSA Carrero, Joseph GBS is negative (3) Abnormal glucose level: COMMENT: 3 HR GTT-Nml (4) SROM (spontaneous rupture of membranes): (5) Breech presentation: COMMENT: proceed with primary Maternal Data Information BECCA Calculator Estimated Delivery Date Method Current WG Current Estimate 03/10/23 LMP (Certain) 39w 5d Final BECCA Source: LMP Gestational age: 39 Details Operative Information Date of Procedure: 03/08/23 Pre-Operative Diagnosis: see a/p diagnoses Post-Operative Diagnosis: same Indications for : Breech Indications Narrative: surgeon: Maryann Sagastume MD Procedure Type: low transverse Type of Anesthesia: Epidural Special Medications: none Drain: Odell to straight drain Fluids Replaced: crystalloid Findings Description of Procedure: The patient was placed in the dorsal supine position with leftward tilt. Patient was prepped and draped in the normal sterile fashion. Pfannenstiel skin incision was made with the scalpel and carried through to the underlying layer of fascia with the scalpel. Fascia was nicked in the midline and the incision extended laterally. The rectus bellies were dissected off superiorly and inferiorly with out complication both sharply and bluntly. The peritoneum was entered digitally. The incision was stretched and a low transverse uterine incision was made with the scalpel. The buttox was delivered atraumatically and the right and left legs were swept anteriorly and delivered, followed by the body and the arms which were swept anteriorly and delivered. Gentle traction was placed on the mentum to flex the head which was delivered without complication. nuchal cord x 1 noted. The cord was clamped and cut and the was handed off to awaiting nurse. The placenta was delivered spontaneously immediately following and was noted to be intact and have a three-vessel cord. The uterus was exteriorized cleared of all clots and debris, and the incision was closed in a single layer closure using #1 Monocryl. The ovaries and fallopian tubes were noted to be within normal limits. The uterus was returned to the maternal abdomen and gutters were cleared of all clots and debris. The peritoneum was closed with 3-0 Monocryl in a running fashion. Gloves were changed prior to fascial closure. Fascia was closed with 0 PDS in a running fashion. Subcutaneous tissue was copiously irrigated and the skin was closed with 3-0 Monocryl in a subcuticular fashion. Mepilex dressing was applied without complication. Patient was taken to recovery in stable condition. It was discussed with the patient that based on the clinical information obtained during this encounter, combined with her history, at this time I would recommend vaginal or for future deliveries if further pregnancies are desired. Presentation: Positive for Complete Breech Placental Delivery Description: Spontaneous Placenta Disposition: [facility] Cord Vessel Description: 3 Vessels Delayed Cord Clamping: Yes Complications Risks of Surgery Discussed w/Patient: Bleeding, Infection, Need for Future C- Sections and Injury to surrounding structure(s) including bowel and bladder Complications: none Admit VTE Documentation VTE Present on Admission: No VTE Mechan Device Prophylaxis: SCD's Procedures Urinary/Genital [id number]: [id number] Delivery [facility]
--- NOTE | 2023-03-08 10:30 | DCINST_ITS ---
Discharge Instructions Diet Discharge Diet: No restrictions Activity Discharge Activity: May Not Drive (for 2 weeks or while taking narcotic pain medications.), May Shower and May Take a Tub Bath (in 7 days) May shower in (days): 0 May resume sexual activity in: 4-6 weeks Weight Bearing Status: Full weight bearing Lifting Restrictions: 20 pounds Dressing / Incision Call your doctor if your incision/area has: Continuous Slow Oozing, Sudden Increased Bleeding, Increased Pain/ Swelling, Increased Redness and Foul Smelling Discharge Call your doctor if you observe: Fever of 101 or Higher and Using more than 1 pad per hour (for 2 hours) Suture Line Care: Avoid Pulling/Pushing and Avoid Pinching/Bending Cleanse incision/area with: Soap & Water and Keep Dressing Clean & Dry Follow Up Care Please Follow Up With: Maryann Sagastume MD When: Call [phone] to make an appointment for an incision check in 1-2 weeks. Test Results: Test results from this visit will be discussed in further detail at your follow- up appointment, if applicable. Discharge Plan Admission Admit Date/Time: 03/08/23 05:35 Attending Provider: Maryann Sagastume Primary Care Provider: Cristy Stahl Primary Discharge Orders/Prescriptions Prescriptions: New oxycodone-acetaminophen [Percocet] 5-325 mg tablet 1 tab PO Q6H PRN (Reason: pain) 7 Days Qty: 20 0RF naproxen [naproxen] 500 mg tablet 500 mg PO BID PRN PRN (Reason: Pain) Qty: 30 1RF No Action loratadine [Claritin] 10 mg tablet 10 mg PO DAILY fluticasone propionate 50 mcg/actuation spray,suspension 1 spray intranasal DAILY Rx Instructions: administer into each nostril PNV-DHA 27 mg iron-1 mg -300 mg capsule 1 cap PO DAILY promethazine 12.5 mg tablet 12.5 mg PO Q6H PRN (Reason: nausea and vomiting) Qty: 60 2RF Referrals / Follow Up: Debbie PhysicianCristy Primary [Primary Care Provider] -
[2023-03-08] MEDS: Oxytocin 15 Units/NS 250ml 15 UNITS/250 ML IV.SOLN 83 UNITS IV (10:50)
[2023-03-08] MEDS: Ketorolac 30 MG/ML Syringe IV ×2 (10:50→18:01)
[2023-03-08] MEDS: Lactated Ringers 1,000 ML 100 ML IV (14:37)
[2023-03-08] MEDS: Acetaminophen 500 MG Tablet 1000 MG PO ×2 (15:52→22:33)
[2023-03-08] MEDS: Enoxaparin 40 MG/0.4 ML Syringe SC (22:34)
[2023-03-09] MEDS: Ketorolac 30 MG/ML Syringe IV ×2 (00:31→05:09)
[2023-03-09] MEDS: 0.9% Saline Lock 10 ML Syringe IV ×2 (00:31→05:09)
[2023-03-09 00:40] VITALS: BP 119/63; PULSE 65; RESP 16; TEMP 36.4; O2SAT 100
[2023-03-09 03:40] VITALS: BP 126/71; PULSE 87; RESP 15; TEMP 36.4; O2SAT 98
[2023-03-09] MEDS: Acetaminophen 500 MG Tablet 1000 MG PO ×2 (03:46→10:18)
[2023-03-09 05:23] LABS: Hematocrit 30.4 % (37-47); Hemoglobin 10.2 g/dL (12.0-15.0); Mean Corp Hgb Conc 33.6 g/dL (32-36); Mean Corpuscular Hgb 31.2 pg (27.0-32.0); Mean Platelet Vol. 9.5 fl (6.2-12.0); Platelet Count 221 K/mm3 (150-450); RBC Distribution Width CV 13.7 % (11.6-14.6); RBC Distribution Width SD 46.5 fl (35.1-43.9); Red Blood Count 3.27 M/mm3 (4.2-5.4); White Blood Count 7.7 K/mm3 (4.4-11.0)
--- NOTE | 2023-03-09 07:20 | PCM.PN.OB ---
Subjective Subjective Patient doing well without complaints. Tolerating PO. Ambulating and voiding without difficulty. Feeding well. Denies chest pain, shortness of breath, calf pain/swelling, fevers, chills, lightheadedness. Objective Data Objective Data Vital Signs: Vital Signs Temp Pulse Resp BP Pulse Ox O2 Del Method 97.6 F L 87 15 126/71 H 98 Room Air 03/09/23 03:40 03/09/23 03:40 03/09/23 03:40 03/09/23 03:40 03/09/23 03:40 03/09/23 03:40 Oxygen Delivery Method Room Air Weight: 201 lb Body Mass Index (BMI) 33.4 Intake & Output: Intake and Output for Last 24 Hours 03/07/23 03/08/23 03/09/23 23:59 23:59 23:59 Intake Total 2703.17 / 2703.17 Output Total 1100 / 1100 200 / 200 Balance 1603.17 / 1603.17 -200 / -200 Lab / Micro Data Attestation: I reviewed the patient's lab results. 03/09/23 05:15 03/08/23 05:55 Labs: Laboratory Results - last 24 hr 03/08/23 05:55: Syphilis Total Ab Non-reactive 03/08/23 07:13: U Random Total Protein 8.1, Urine Creatinine 59.00, Protein/Creatinin Ratio 137 03/09/23 05:15: WBC 7.7, RBC 3.27 L, Hgb 10.2 L, Hct 30.4 L, MCV 93.0, MCH 31.2, MCHC 33.6, RDW Std Deviation 46.5 H, RDW Coeff of Douglas 13.7, Plt Count 221, MPV 9.5 ROS Constitutional Constitutional: Reports systems reviewed and no addt'l complaints, except as documented; Denies anorexia or headache(s) Cardiovascular Cardiovascular: Reports systems reviewed and no addt'l complaints, except as documented; Denies dizziness, dyspnea, nausea or tachypnea Respiratory/Chest Respiratory/Chest: Reports systems reviewed and no addt'l complaints, except as documented; Denies cough, dyspnea, shortness of breath at rest or tachypnea Gastrointestinal Gastrointestinal: Reports systems reviewed and no addt'l complaints, except as documented; Denies abdominal pain, constipation or nausea Genitourinary Genitourinary: Reports systems reviewed and no addt'l complaints, except as documented; Denies burning urination, difficulty urinating, dysuria, urinary frequency or urinary incontinence Musculoskeletal Musculoskeletal: Reports systems reviewed and no addt'l complaints, except as documented Integumentary Integumentary: Reports systems reviewed and no addt'l complaints, except as documented Neurologic Neurologic: Reports systems reviewed and no addt'l complaints, except as documented; Denies abnormal speech, dizziness or headache(s) Psychiatric Psychiatric: Reports systems reviewed and no addt'l complaints, except as documented Endocrine Endocrinology: Reports systems reviewed and no addt'l complaints, except as documented Hematologic/Lymphatic Hematologic/Lymphatic: Reports systems reviewed and no addt'l complaints, except as documented Physical Exam Const alert, oriented x3 and no apparent distress Neck full ROM Resp normal respiratory effort, normal air movement and no retractions Effort and Inspection: able to speak in complete sentences and symmetric chest movement GI soft to palpation Inspection: incision intact Bladder / Kidney Exam: bladder normal to palpation Uterus Palpation: uterus fundus firm Extremity normal to inspection and full ROM Psych mental status grossly normal, thought process normal and cooperative Assessment & Plan (1) delivery delivered: COMMENT: LTCS breech girl 39 SROM [facility] PLAN: s/p LTCS PPD # 1 1. routine post care 2. breast feeding- support given 3. rh positive 4. rubella immune 5. Discharge home Charges/Coding Multi Select Codes Urinary/Genital Urinary/Genital CPT Codes: No Charge
--- NOTE | 2023-03-09 07:22 | DCINST_ITS ---
Discharge Instructions Diet Discharge Diet: No restrictions Activity May shower in (days): 0 May resume sexual activity in: 4-6 weeks Weight Bearing Status: Full weight bearing Dressing / Incision Call your doctor if your incision/area has: Continuous Slow Oozing, Sudden Increased Bleeding, Increased Pain/ Swelling, Increased Redness and Foul Smelling Discharge Call your doctor if you observe: Fever of 101 or Higher and Using more than 1 pad per hour (for 2 hours) Suture Line Care: Avoid Pulling/Pushing and Avoid Pinching/Bending Remove Dressing in: 1 week Cleanse incision/area with: Soap & Water and Keep Dressing Clean & Dry Follow Up Care Please Follow Up With: Maryann Sagastume MD Test Results: Test results from this visit will be discussed in further detail at your follow- up appointment, if applicable. Discharge Plan Admission Admit Date/Time: 03/08/23 05:35 Attending Provider: Maryann Sagastume Primary Care Provider: Debbie PhysicianCristy Primary Discharge Orders/Prescriptions Prescriptions: New oxycodone-acetaminophen [Percocet] 5-325 mg tablet 1 tab PO Q6H PRN (Reason: pain) 7 Days Qty: 20 0RF naproxen [naproxen] 500 mg tablet 500 mg PO BID PRN PRN (Reason: Pain) Qty: 30 1RF No Action loratadine [Claritin] 10 mg tablet 10 mg PO DAILY fluticasone propionate 50 mcg/actuation spray,suspension 1 spray intranasal DAILY Rx Instructions: administer into each nostril PNV-DHA 27 mg iron-1 mg -300 mg capsule 1 cap PO DAILY promethazine 12.5 mg tablet 12.5 mg PO Q6H PRN (Reason: nausea and vomiting) Qty: 60 2RF Referrals / Follow Up: Care Physician,No Primary [Primary Care Provider] - Disposition Disposition (needs filled in before D/C Order can be placed): Home, Self Care
[2023-03-09 08:09] VITALS: BP 130/73; PULSE 110; RESP 16; TEMP 36.4; O2SAT 98
[2023-03-09] MEDS: Senna/Docusate Sodium 1 Tablet PO (08:58)
[2023-03-09 11:14] VITALS: BP 119/74; PULSE 78; RESP 16; TEMP 36.4; O2SAT 98
[2023-03-09] MEDS: Naproxen 500 MG Tablet PO (11:57)
== END 2023-03-09 12:30 | disposition home or self-care (01) | DRG 788 ==
LOC: WPOUT 05:35 → WP 05:35
PROVIDERS: Admitting Provider Obstetrics & Gynecology; Referring Provider Obstetrics & Gynecology; Visit Provider Obstetrics & Gynecology
DX: O32.1XX0 Maternal care for breech presentation, not applicable or unspecified (principal); O99.814 Abnormal glucose complicating childbirth; O13.4 Gestational [pregnancy-induced] hypertension without significant proteinuria, complicating childbirth; O42.92 Full-term premature rupture of membranes, unspecified as to length of time between rupture and onset of labor; O69.81X0 Labor and delivery complicated by cord around neck, without compression, not applicable or unspecified; O77.0 Labor and delivery complicated by meconium in amniotic fluid; Z37.0 Single live birth; Z3A.39 39 weeks gestation of pregnancy
CPT/HCPCS: 59025; 59050; 82565; 82570; 84112; 84156; 84450; 84460; 84550; 85025; 85027; 86780; 86850; 86900; 86901; 99221; J7120; A4216; G0378; J2405